=== PATIENT | female | born 1960 | race Caucasian/White ===

== ENCOUNTER → 2016-10-19 | Outpatient (CLI) | payer MEDICAID ==
[~2016-10-19] MED LIST: LIDOCAINE 1% 30 ML SDV ONE; NA BICARBONATE 50 MEQ/50 ML VIAL ONE
[2016-10-19 12:19] LABS: CSF APPEARANCE CLEAR (CLEAR); CSF COLOR COLORLESS (COLORLESS); CSF SUPERNATANT COLORLESS (COLORLESS); WBC, CSF 2 /mm3 (0-5)
[2016-10-19 12:20] LABS: PROTEIN, CSF 43 mg/dL (12-60)
[2016-10-19 12:22] LABS: CSF APPEARANCE SL. HAZY (CLEAR); CSF COLOR COLORLESS (COLORLESS); CSF SUPERNATANT COLORLESS (COLORLESS); WBC, CSF 7 /mm3 (0-5)
[2016-10-25 09:01] LABS: ALBUMIN CSF 19.5 mg/dL (<=27.0); CSF IGG INDEX 1.05 (<=0.85); IGG CSF 4.2 mg/dL (<=8.1); IGG/ALBUMIN CSF 0.22 (<=0.21); IGG/ALBUMIN SERUM 0.21 (<=0.40); SYNTHESIS RATE 10.27 mg/24 h (<=12)
== END ==
LOC: FIMAGING 07:56
PROVIDERS: ATTEND Physician Assistant Medical
PROC: 009U3ZX Drainage of Spinal Canal, Percutaneous Approach, Diagnostic (ICD-10-PCS; principal; 2016-10-19)
DX: G37.9 Demyelinating disease of central nervous system, unspecified (principal); R26.9 Unspecified abnormalities of gait and mobility; R29.2 Abnormal reflex
CPT/HCPCS: 82784-90; 83916-90

== ENCOUNTER 2016-10-24 12:11 | Emergency (ER) | payer MEDICAID ==
--- NOTE | 2016-10-24 13:43 | EDPHY ---
H & P Time Seen by Provider: 10/24/16 13:32 HPI/ROS: CHIEF COMPLAINT: Headache HISTORY OF PRESENT ILLNESS: This patient is a 56 year old female who presents to the Emergency Department complaining of a severe headache beginning on the evening of October 19 following a lumbar puncture that morning for evaluation of possible MS. She felt normal when she returned home from the procedure but began to experience left-sided hearing loss and an acute severe headache with associated vomiting that evening. She was seen in the Emergency Department on Sunday for her persistent headache. She was evaluated at that time by the anesthesiologist on-call who discussed the option of proceeding with an epidural blood patch, but they ultimately decided to treat her symptoms with medication. Today, she continues to complain of a mild (1/10) persistent headache with associated nausea that is exacerbated to severity of 5/10 when attempting to sit-up or stand. She also report intermittent hearing loss. She denies any additional complaints. REVIEW OF SYSTEMS: Constitutional: No fever, no chills Eyes: No visual changes ENT: No sore throat Respiratory: No cough, no shortness of breath Cardiac: No chest pain Gastrointestinal: +nausea, +vomiting, no abdominal pain Genitourinary: No hematuria, no dysuria Musculoskeletal: No leg pain or swelling Skin: No rash Neurological: +headache, no numbness, no weakness Psychiatric: No depression Past Medical/Surgical History: Denies. Social History: Smokes occasionally. Smoking Status: Current some day smoker Physical Exam: General Appearance: Alert, pleasant Eyes: Pupils equal and round, no conjunctival pallor ENT, Mouth: Mucous membranes moist Neck: Normal inspection Respiratory: Lungs are clear to auscultation Cardiovascular: Regular rate and rhythm Gastrointestinal: Abdomen is soft and non-tender Neurological: Alert, oriented x3, cranial nerves II through XII intact, motor 5 /5, sensory intact to light touch Skin: Warm and dry Extremities: Normal inspection Psychiatric: Mood and affect normal Constitutional: Initial Vital Signs Temperature (C) 36.6 C 10/24/16 12:15 Heart Rate 78 10/24/16 12:15 Respiratory Rate 18 10/24/16 12:15 Blood Pressure 126/80 H 10/24/16 12:15 O2 Sat (%) 97 10/24/16 12:15 O2 Delivery Mode Room Air Allergies/Adverse Reactions: No Known Allergies Allergy (Verified 10/24/16 12:16) Home Medications: Medication Instructions Recorded Calcium Carbonate/Vitamin D3 1 cap PO BID 04/08/16 [Calcium 600 + Vit D 400 Softgl] FLUoxetine [Prozac 20 MG (*)] 60 mg PO DAILY 04/08/16 Fluticasone Nasal [Flonase Nasal 2 sprays NASAL DAILY 04/08/16 [place]] Cholecalciferol Vit D3 [Vitamin D3 2,000 units PO DAILY@07 #0 tab 04/18/16 2000 units tab (OTC)] Ondansetron [Ondansetron Odt] 8 mg PO 10/24/16 Medical Decision Making ED Course/Re-evaluation: IV normal saline 1 L given. The patient declines medication for nausea at this time. When she was seen by the on-call anesthesiologist in the ED on Sunday, they discussed possible administration of blood patch which she ultimately declined at that time. She is interested in proceeding with this treatment today. Will consult with the anesthesiologist to request blood patch. 1357: Consultation with Dr. Monte, on-call anesthesiologist, who will visit the patient in the ED. 1648: Dr. Vila is present and completing the blood patch procedure in the ED. Once the procedure is complete, the patient will be discharged home with customary return to the ED precautions. The patient tolerated the blood patch procedure well and was discharged home in good condition. Differential Diagnosis: Headache including but not limited to subarachnoid hemorrhage, migraine headache , tension headache and infectious causes such as meningitis, pharyngitis and sinusitis. - Data Points Medications Given: Discontinued Medications Sodium Chloride (Ns) 1,000 mls @ 0 mls/hr IV ONCE ONE PRN Reason: Wide Open Stop: 10/24/16 14:20 Last Admin: 10/24/16 14:40 Dose: 1,000 mls Departure - Departure Disposition: Home, Routine, Self-Care Clinical Impression: Spinal headache Condition: Good Instructions: Lumbar Puncture (ED), Acute Headache (ED) Additional Instructions: 1. Follow-up with your primary care provider for reevaluation within the next 3- 5 days. 2. Return to the Emergency Department with worsening headache, numbness or tingling, slurred speech, vision changes, or other serious concerns. Referrals: Elena Archer MD [Medical Doctor] - As per Instructions Stand Alone Forms: Work Excuse Report Scribed for: Marie Pierson Report Scribed by: Kavita Meehan Date of Report: 10/24/16 Time of Report: 13:35
[2016-10-24] MEDS ORDERED: NS 1,000 ML IV ONE (14:19)
[2016-10-24 17:12] VITALS: PULSE 66
[2016-10-24 17:44] VITALS: BP 130/87; RESP 16; TEMP 98.1; O2SAT 96
== END 2016-10-24 17:43 | disposition home or self-care (01) ==
DX: G97.1 Other reaction to spinal and lumbar puncture (principal); F17.200 Nicotine dependence, unspecified, uncomplicated